=== PATIENT | male | born 1995 | race Caucasian/White ===

== ENCOUNTER 2022-08-30 05:58 | Emergency (ER) | payer SELFPAY ==
[~2022-08-30] VITALS: Ht 165.1 cm; Wt 63.6 kg
[2022-08-30 07:25] VITALS: BP 125/83
== END 2022-08-30 07:27 | disposition home or self-care (01) ==
LOC: ER 05:58 → EDBD 05:58 → ER 07:27
DX: F15.10 Other stimulant abuse, uncomplicated (principal); F19.90 Other psychoactive substance use, unspecified, uncomplicated; F16.90 Hallucinogen use, unspecified, uncomplicated; F17.210 Nicotine dependence, cigarettes, uncomplicated
CPT/HCPCS: 93005

== ENCOUNTER 2022-10-14 09:46 | Emergency (ER) | payer SELFPAY ==
[2022-10-14 10:10] LABS: Basophils # (auto) 0 10 ^3/uL (0-0.2); Basophils % (auto) 0.2 % (0.0-2.0); Eosinophils # (auto) 0.1 10 ^3/uL (0-0.8); Eosinophils % (auto) 0.8 % (0.0-7.0); Hematocrit 48.5 % (41.0-53.0); Hemoglobin 16.4 g/dL (13.5-17.5); Lymphocytes # (auto) 0.9 10 ^3/uL (0.4-5.4); Lymphocytes % (auto) 12.4 % (10.0-50.0); Mean Corpuscular Hemoglobin 29.9 pg (28.0-32.0); Mean Corpuscular Hgb Conc. 33.7 g/dL (32.0-36.0); Mean Corpuscular Volume 88.6 fL (80.0-100.0); Monocytes # (auto) 0.7 10 ^3/uL (0-1.3); Monocytes % (auto) 9.5 % (0.0-12.0); Neutrophils # (auto) 5.7 10 ^3/uL (1.6-8.6); Neutrophils % (auto) 77.1 % (37.0-80.0); Red Blood Cells 5.48 10^6/uL (4.5-5.90); White Blood Cell 7.4 10^3/uL (4.4-10.8)
[2022-10-14 10:30] LABS: Albumin 3.7 g/dL (3.4-5.0); Calcium 8.7 mg/dL (8.5-10.1); Magnesium 2.2 mg/dL (1.6-2.6); Potassium 3.6 mmol/L (3.5-5.1)
[2022-10-14 10:33] LABS: BUN/Creatinine Ratio 19.8; Bilirubin, Total 0.3 mg/dL (0.2-1.0); Total Protein 7.2 g/dL (6.4-8.2)
[2022-10-14] MEDS ORDERED: ASPirin 325 MG TAB PO ONE (11:15)
[2022-10-14 13:26] VITALS: BP 99/61
== END 2022-10-14 13:29 | disposition home or self-care (01) ==
LOC: ER 09:46
DX: R07.89 Other chest pain (principal); F15.10 Other stimulant abuse, uncomplicated; F19.10 Other psychoactive substance abuse, uncomplicated; F17.210 Nicotine dependence, cigarettes, uncomplicated; F12.90 Cannabis use, unspecified, uncomplicated
CPT/HCPCS: 36415; 71045; 80053; 83735; 84484; 85025; 93005; 96360; 96361

== ENCOUNTER 2024-12-06 11:12 | Emergency (ER) | payer SELFPAY ==
[~2024-12-06] VITALS: Ht 162.6 cm; Wt 67.5 kg
--- NOTE | 2024-12-06 12:02 | ED.PDOC ---
Musculoskeletal HPI Comments HPI: Poor Historian. 29-year-old male presents to emergency department for evaluation of left upper extremity pain and swelling that started yesterday. Patient states that two days ago he injected methamphetamine his left forearm. Patient denies any other acute symptoms. past medical history: denies past surgical history: denies medications: denies allergies: nkda social history: endorses tobacco use, endorses Etoh use, endorses drug use(mar ijuana, methamphetamine) REVIEW OF SYSTEMS: CONSTITUTIONAL: Denies acute: fever, diaphoresis, chills, generalized weakness. HEAD: Denies acute: headache, photophobia Eyes: Denies acute: Double vision, vision loss, eye pain, eye discharge. EARS: Denies acute: tinnitus, hearing loss, ear discharge, ear pain, THROAT: Denies acute: sore throat, swelling, difficulty swallowing , pain with swallowing, change in voice. NECK: Denies acute: neck pain, neck swelling, stiff neck. HEART: Denies acute : chest pain, palpitations, LUNGS: Denies acute: SOB, wheezing, cough, hemoptysis ABDOMEN: Denies acute: abdominal pain, Nausea, Vomiting, diarrhea, melena , hematemesis, hematochezia SKIN: Denies acute: rash, redness, lesions, itchiness. EXTREMITIES: Denies acute: calf pain, numbness, tingling, weakness, Denies acute: Low back pain. Neuro: Denies acute: focal neurological deficit, motor or sensory focal neurological deficit, tremors, seizure like activity, confusion, dizziness, change in mental status, loss of bowel or bladder function, cauda equina like symptoms. : Denies acute: dysuria, hematuria, flank pain, increase in urinary frequency. PSYCH: Denies acute: hallucination, suicidal ideation, homicidal ideation. PHYSICAL EXAM: General: [id number] acute distress, awake and alert. Head: normocephalic, atraumatic. Neck: supple, trachea is midline, no swelling. Throat: Normal phonation. Eyes:, no erythema, no purulent discharge, no proptosis, no icterus. Heart: regular rate, regular rhythm, no significant murmur appreciated. Lungs: no apparent respiratory distress, Able to speak in full sentences. No wheezing, no rhonchi, no crackles. No stridors Clear to auscultation bilaterally. Abdomen: non tender to palpation, non distended, soft, no guarding, no rebound, + bowel sounds. Neuro: Awake, Alert, oriented to name, self, situation, follows commands GCS=15. Speech is normal. Skin: no petechia, no purpura, no cyanosis, non-pale, not jaundice. Lower extremities: --no - Pitting edema no deformity, no focal swelling, no calf TTP. Makes eye contact. moves all four extremities. Face: no apparent facial droop. Ambulating in the ED independently. Evaluation of the area of complaint: Left upper extremity has generalized diffuse swelling from the left shoulder and extending all the way to the fingertips. Tenderness to palpation throughout. Noted focal areas of redness where patient injected methamphetamine two days ago. Radial pulses palpable. S ensory and motor are present distally. ED COURSE: The transfer center from [facility] called back and said they are unable to get a hold of the hand surgeon again Dr. Schmid. And for this reason they declined the transfer. We will continue to search for other facilities for higher level of care. We do not have any hand surgeon here. I also discussed the case with Dr. Vazquez our general surgeon who says he does not do extremities in these cases. At this time 21:17 p.m. case was discussed with [facility]. They spoke with the hand surgeon on-call Dr. Singletary. She declined to see the patient and she says that the patient needs a tertiary facility where there is an orthopedic hand surgeon. She is a plastic hand surgeon. At 22:05 p.m. our I spoke with [facility] transfer center: The case was discussed with the orthopedic surgeon and the hand surgeon a deficit (HPI, physical exam, labs and diagnostic tests that were available at the time of disposition, ED course, treatment plan) on the phone. I spoke with Dr. See the hand surgeon special education science teacher in a said that since the swelling extends above the hand he can not accept the patient it exceeds his expertise. I reasons with him that if he is willing to follow in consult as far as the hand I will speak with the orthopedic surgeon at the facility and see if they are also willing to follow in consult for the remainder of the extremity. He still refused to accept the patient. I spoke with the orthopedic surgeon at their facility Dr. Mittal. He was more reasonable and agreeable to follow in consult if hand surgeon is also going to be in on board involved to cover the hand portion of the presentation of the patient. They tried to call the hand surgeon again to have a conference call with the orthopedic doctor and myself. They were unable to reach the hand surgeon again. The transfer center said they will continue to try to reach out to the hand surgeon to see if he is willing to follow in consult pertaining to the hand only with the understanding that the orthopedic doctor will do his part of the extremity as well. Have not heard back from the transfer center yet. Chief Complaint: Upper Extremity Time Seen by MD: 11:16 Primary Care Provider: UNKNOWN Reviewed Notes: Nurses Notes, Medications, Allergies Allergies: Coded Allergies: NO KNOWN ALLERGIES (Unverified , 08/30/22) Information Source: Patient Mode of Arrival: Ambulatory Location: Left Past Medical History PAST MEDICAL HISTORY: Denies Surgical History: Denies all surgeries Family History Family History: Reviewed,noncontributory to illness Social History Smoker: Cigarettes Alcohol: Occasionally Drugs: Marijuana, Methamphetamine, Other Was a procedure done? Was a procedure done?: No Differential Diagnosis EXT Differential Diagnosis: Cellulitis, CHF, Deep Vein Thrombosis, Compartment Syndrome, Fracture, Sprain, Dislocation, Gout, DJD, Myocardial Infarction, Contusion, Strain, Septic, Neurovascular injury, Arthritis, Bursitis, Other (Denies any fasciitis, abscess) X-Ray, Labs, Meds, VS Vital Signs Date Time Temp Pulse Resp B/P (MAP) Pulse Ox O2 Delivery O2 Flow Rate FiO2 12/06/24 22:05 98.2 94 18 129/88 (102) 98 98.2 12/06/24 21:19 122/75 12/06/24 19:56 98 19 98 Room Air* 0 21 12/06/24 19:33 98.8 98 19 136/96 (109) 100 98.8 12/06/24 18:07 122/77 12/06/24 18:00 90 20 120/77 (91) 96 12/06/24 17:30 112 12/06/24 17: 98.3 107 38 118/72 (87) 99 98.3 12/06/24 17:25 107 38 99 Room Air* 0 21 12/06/24 15:00 98.3 105 19 124/71 (88) 94 98.3 12/06/24 12:21 108 16 95 Room Air* 0 21 12/06/24 12:20 97.4 108 16 117/67 (84) 95 97.4 12/06/24 11:41 98.3 108 17 119/71 (87) 96 98.3 Lab Test 12/06/24 15:10 12/06/24 14:03 12/06/24 12:40 12/06/24 11:31 Range/Units Troponin I High Sensitivity < 3 L < 3 L </=54 ng/L Sodium Level 135 L 136-145 mmol/L Potassium Level 4.0 3.5-5.1 mmol/L Chloride Level 101 98-107 mmol/L Carbon Dioxide Level 25 20-31 mmol/L Anion Gap 9 5-15 Blood Urea Nitrogen 20 9-23 mg/dL Creatinine 1.18 0.700-1.30 mg/dL Glomerular Filtration Rate Calc 85 >90 mL/min BUN/Creatinine Ratio 16.9 10.0-20.0 Serum Glucose 129 H 74-106 mg/dL Calcium Level 9.6 8.7-10.4 mg/dL Total Bilirubin 0.6 0.2-1.0 mg/dL Aspartate Amino Transferase (AST) 27 13-40 U/L Alanine Aminotransferase (ALT) 15 7-40 U/L Alkaline Phosphatase 126 H 46-116 U/L C-Reactive Protein High Sensitivity 14.80 H <1.0 mg/dL Total Protein 7.4 5.7-8.2 g/dL Albumin 4.3 3.2-4.8 g/dL White Blood Count 22.0 H 4.4-10.8 10^3/uL Red Blood Count 6.20 H 4.5-5.90 10^6/uL Hemoglobin 18.5 H 13.5-17.5 g/dL Hematocrit 53.0 41.0-53.0 % Mean Corpuscular Volume 85.4 80.0-100.0 fL Mean Corpuscular Hemoglobin 29.8 28.0-32.0 pg Mean Corpuscular Hemoglobin Concent 34.9 32.0-36.0 g/dL Red Cell Distribution Width 14.5 H 11.8-14.3 % Platelet Count 326 140-450 10^3/uL Mean Platelet Volume 8.4 6.9-10.8 fL Neutrophils (%) (Auto) 87.4 H 37.0-80.0 % Lymphocytes (%) (Auto) 6.5 L 10.0-50.0 % Monocytes (%) (Auto) 5.8 0.0-12.0 % Eosinophils (%) (Auto) 0.1 0.0-7.0 % Basophils (%) (Auto) 0.2 0.0-2.0 % Neutrophils # (Auto) 19.2 H 1.6-8.6 10 ^3/uL Lymphocytes # (Auto) 1.4 0.4-5.4 10 ^3/uL Monocytes # (Auto) 1.3 0-1.3 10 ^3/uL Eosinophils # (Auto) 0 0-0.8 10 ^3/uL Basophils # (Auto) 0 0-0.2 10 ^3/uL Nucleated Red Blood Cells 0.0 % D-Dimer, Quantitative 0.26 0.0-0.49 mg/L FEU Lactic Acid Level 1.6 0.4-2.0 mmol/L B-Type Natriuretic Peptide 1.09 0-100 pg/mL Urine Color Yellow Yellow Urine Clarity Clear Clear Urine pH 6.5 5.0-9.0 Urine Specific [place] > 1.050 H 1.001-1.035 Urine Protein 1+ H Negative Urine Ketones Negative Negative Urine Blood Negative Negative /uL Urine Nitrite Negative Negative Urine Bilirubin Negative Negative Urine Urobilinogen Normal Negative mg/dL Urine Leukocyte Esterase Negative Negative /uL Urine RBC 2 0 - 3 /hpf Urine Microscopic WBC 4 H 0-3 /HPF Urine Squamous Epithelial Cells Few <5 /hpf Urine Bacteria None seen None Seen /hpf Urine Mucus Few None Seen Urine Glucose Normal Normal mg/dL Current Medications Medications (Trade) Dose Ordered Sig/Isauro Route Start Time Stop Time Status Last Admin Vancomycin HCl 250 ml @ 250 mls/hr ONCE ONCE IV 12/06/24 11:45 12/06/24 12:44 DC 12/06/24 12:56 Piperacillin Sod/ Tazobactam Sod 100 ml @ 100 mls/hr ONCE ONCE IV 12/06/24 11:45 12/06/24 12:44 DC 12/06/24 12:55 Diphenhydramine HCl (Benadryl Injection) 50 mg ONCE ONCE IV 12/06/24 13:15 12/06/24 13:16 DC 12/06/24 13:11 Acetaminophen/ Hydrocodone Bitart ([place] 5/325MG Tab) 1 tab ONCE ONCE PO 12/06/24 13:15 12/06/24 13:16 DC 12/06/24 13:13 Sodium Chloride 1,000 ml @ 1,000 mls/hr Q1H ONCE IV 12/06/24 17:00 12/06/24 17:59 DC 12/06/24 17:10 Fentanyl Citrate 100 mcg ONCE ONCE IV 12/06/24 18:00 12/06/24 18:01 DC 12/06/24 18:07 Fentanyl Citrate 100 mcg ONCE ONCE IV 12/06/24 21:00 12/06/24 21:01 DC 12/06/24 21:19 Sodium Chloride 1,000 ml @ 1,000 mls/hr Q1H ONCE IV 12/06/24 21:00 12/06/24 21:59 DC 12/06/24 21:00 [place] [address] Ph: [phone] DIAGNOSTIC IMAGING Diagnostic Imaging Report : [id number] Signed PATIENT: BUDDY SCHNEIDER ACCT: [id number] UNIT: [id number] : 1995 LOC: ER ROOM / BED: / AGE / SEX: 29 / M ADM STATUS: REG ER SERVICE 1131 ORDERING PHYSICIAN: CHRISTIAN WILLETT DO PROCEDURE(s): LUDVT - LT Upper DVT REASON: LUE pain swelling, tachy ORDER NUMBER(s): [id number], ACCESSION NUMBER(s): [id number] LEFT Upper Extremity Venous Duplex Clinical History: LUE pain swelling, tachy Comparison: None Technique: Duplex Doppler evaluation of the venous system of the LEFT lower neck and upper extremity including color Doppler and spectral/pulsed waveform analysis was performed. Findings: The internal jugular vein demonstrates appropriate compressibility and waveform variability. The subclavian vein is patent on color Doppler evaluation without intraluminal thrombus and demonstrates waveform variability. The visualized portion of the brachiocephalic vein is patent on color Doppler evaluation without intraluminal thrombus and demonstrates waveform variability. The axillary vein demonstrates appropriate compressibility and waveform variability. The brachial veins demonstrate appropriate compressibility and patency on Doppler evaluation. The basilic vein demonstrates appropriate compressibility and patency on Doppler evaluation. The cephalic vein demonstrates intraluminal thrombus. Edema is present in the left upper extremity. Impression: No deep venous thrombus identified in the LEFT upper extremity vessels evaluated above. Positive superficial thrombus is present in the left cephalic vein. ATED BY: SYD ARANDA MD DICTATED DATE/TIME: 12/06/241224 SIGNED BY: SYD ARANDA MD SIGNED DATE/TIME: 12/06/241224 CC: [place] [id number] Ph: [phone] DIAGNOSTIC IMAGING Diagnostic Imaging Report : [id number] Signed PATIENT: BUDDY SCHNEIDER ACCT: [id number] UNIT: [id number] : 1995 LOC: ER ROOM / BED: / AGE / SEX: 29 / M ADM STATUS: REG ER SERVICE 1131 ORDERING PHYSICIAN: CHRISTIAN WILLETT DO PROCEDURE(s): CXRP - CHEST PORTABLE REASON: LUE pain swelling, tachy ORDER NUMBER(s): [id number], ACCESSION NUMBER(s): [id number] EXAM: XY CHEST PORTABLE Indication: LUE pain swelling, tachy Technique: Single frontal view of the chest was obtained Comparison: CHEST PORTABLE on DOS: 10/14/22, CXRP on DOS: 10/14/22 FINDINGS: Lines and Tubes: None Lungs: No focal consolidation. Pleura: No effusion. No pneumothorax. Cardiomediastinal contours: Unremarkable Bones: No acute osseous abnormality. IMPRESSION: No acute cardiopulmonary disease. ATED BY: FRANCINE BACK MD DICTATED DATE/TIME: 12/06/241218 SIGNED BY: FRANCINE BACK MD SIGNED DATE/TIME: 12/06/241218 CC: [address] [address] Ph: [phone] DIAGNOSTIC IMAGING Diagnostic Imaging Report : [id number] Signed PATIENT: BUDDY SCHNEIDER ACCT: [id number] UNIT: [id number] : 1995 LOC: ER ROOM / BED: / AGE / SEX: 29 / M ADM STATUS: REG ER SERVICE 1131 ORDERING PHYSICIAN: CHRISTIAN WILLETT DO PROCEDURE(s): UECIR - LT UPPER EXTREMITY W CONTRAS REASON: LUE pain swelling, tachy ORDER NUMBER(s): [id number], ACCESSION NUMBER(s): [id number] EXAM: CT LT UPPER EXTREMITY W CONTRAS INDICATION: LUE pain swelling, tachy EXAM DATE: 12/06/2024 03:51 PM COMPARISON: None TECHNIQUE: Multiple axial CT images of the left upper extremity were obtained using bone algorithm. Axial and coronal reformatting was done. Bone and soft tissue windows were reviewed. Radiation Dose Information: CT Dose: CTDI volume is 45.04 mGy. Dose-length product is 2794.92 mGy*cm Omnipaque 300: 100 mL Findings: There is no evidence of an acute fracture, dislocation, blastic, or lytic lesions. No drainable fluid collections. Motion artifact wall scanning of the proximal portion of the humerus can not exclude fracture of the because of this artifact. Subcutaneous edema left upper extremity No radiopaque foreign bodies. No joint effusion or superficial soft tissue abnormalities. Impression: 1. Subcutaneous edema in the left upper extremity. No drainable fluid collections. 2. Motion artifact wall scanning the proximal 3rd of the humerus can not exclude fracture. 3. Consider MRI for further evaluation. HS:Y ATED BY: JONES AZUL Jr., DO DICTATED DATE/TIME: 12/06/241704 SIGNED BY: JONES AZUL Jr., SIGNED DATE/TIME: 12/06/241704 CC: Time of 1ST Reevaluation: 14:21 (The orthopedic surgeon has just evaluated the patient. They he came and spoke with me and said that the patient needs to be transferred to higher level of care for decompression and he said that he can not do the hand but he needs decompression the hand forearm and above the elbow as well.) Reevaluation 1ST: Unchanged Time of 2ND Reevaluation: 16:50 (At this time I discussed the case with the hand surgeon at [facility] Dr. Schmid. He refused to accept the case. He said a general orthopedic surgeon can manage this case. I emphasized and clarified that the hand is definitely involved in his swollen and the patient probably needs decompression in the hand in addition to the remainder of the left upper extremity per hour orthopedic doctor recommendations. He is still convinced that this is an upper extremity case that does not need that hand involvement and emphasizes that any general orthopedic doctor can do this case and he declined to accept it. I updated Dr. Keller our orthopedic surgeon of the situation. He is 100% certain and adamant about transfer the patient for hand surgeon. Dr. Keller said it is mal practice for any general orthopedic doctor to decompress any palmar aspect of the hand. ) Reevaluation 2ND: Unchanged Time of 3RD Reevaluation: 17:50 (The case was discussed with the same team [facility] team (HPI, physical exam, labs and diagnostic tests that were available at the time of disposition, ED course, treatment plan) on the phone. I discussed the case with the orthopedic surgeon at the facility Dr. Escobar Zuleta. He accepts the patient under the condition that the hand surgeon is also willing to follow in consult. Transfer center stated that they will try to reach the hand surgeon again and confirmed with us the acceptance of the patient. I also discussed the case with the ER physician Dr. Jane.) Reevaluation 3RD: Unchanged Patient Education/Counseling: Diagnosis, Treatment Family Education/Counseling: No Family Present Assigned to Dr. Dr. Meehan. The care of this patient was transferred to [facility] still awaiting for an accepting facility. Patient received IV antibiotics. Patient was elevated in person by Orthopedic surgery here in the ED. They recommended transfer the patient to higher level of care for decompression. We tried multiple facilities and have not been successful so far to have an accepting facility. Patient is homeless and states he has five puppies that he has to go take care of. He also stated that he is worried about the financial expense of being transferred and being treated at another facility that he is does not want to get stuck with a bill. I tried to reason with him that he must take care of his arm otherwise he could potentially lose his arm. I anticipate the patient will likely leave against medical advice. Departure 1 Departure Time of Disposition: 13:40 Impression: Primary Impression: Left arm cellulitis Additional Impressions: Superficial thrombophlebitis of left upper extremity Sepsis Leukocytosis Methamphetamine abuse Disposition: 02 SHORT TERM HOSPITAL Admit to: Tele Condition: Guarded Discharged With: Self Critical Care Note Critical Care Time?: Yes (>90min-critical care time only) I personally scribed for CHRISTIAN WILLETT DO ([email or web address]) on 12/06/24 at 16:36. Electronically submitted by Radha Garcia ([facility] I personally scribed for CHRISTIAN WILLETT DO ([email or web address]) on 12/06/24 at 18:19. Electronically submitted by Radha Garcia ([facility] I personally scribed for CHRISTIAN WILLETT DO ([email or web address]) on 12/06/24 at 20:39. Electronically submitted by Radha Garcia ([facility] CHRSITIAN WILLETT DO Dec 06, 2024 12:02
[2024-12-06 12:21] VITALS: PULSE 108; RESP 16; O2SAT 95
--- NOTE | 2024-12-06 12:21 | DVH ---
EXAM: XY CHEST PORTABLE Indication: LUE pain swelling, tachy Technique: Single frontal view of the chest was obtained Comparison: CHEST PORTABLE on DOS: 10/14/22, CXRP on DOS: 10/14/22 FINDINGS: Lines and Tubes: None Lungs: No focal consolidation. Pleura: No effusion. No pneumothorax. Cardiomediastinal contours: Unremarkable Bones: No acute osseous abnormality. IMPRESSION: No acute cardiopulmonary disease.
--- NOTE | 2024-12-06 12:28 | DVH ---
LEFT Upper Extremity Venous Duplex Clinical History: LUE pain swelling, tachy Comparison: None Technique: Duplex Doppler evaluation of the venous system of the LEFT lower neck and upper extremity including color Doppler and spectral/pulsed waveform analysis was performed. Findings: The internal jugular vein demonstrates appropriate compressibility and waveform variability. The subclavian vein is patent on color Doppler evaluation without intraluminal thrombus and demonstra loc waveform variability. The visualized portion of the brachiocephalic vein is patent on color Doppler evaluation without intr aluminal thrombus and demonstrates waveform variability. The axillary vein demonstrates appropriate compressibility and waveform variability. The brachial veins demonstrate appropriate compressibility and patency on Doppler evaluation. The basilic vein demonstrates appropriate compressibility and patency on Doppler evaluation. The cephalic vein demonstrates intraluminal thrombus. Edema is present in the left upper extremity. Impression: No deep venous thrombus identified in the LEFT upper extremity vessels evaluated above. Positive superficial thrombus is present in the left cephalic vein.
[2024-12-06] MEDS: PIPERACILLIN-TAZOB 3.375GM 100 ML IV ONE (12:55)
[2024-12-06] MEDS: VANCOMYCIN 1GM/250ML KIT 250 ML IV ONE (12:56)
[2024-12-06] MEDS: diphenhdrAMINE HCL 50 MG/1 ML VL IV ONE (13:11)
[2024-12-06] MEDS: HYDROcodone-ACET 5/325MG TAB PO ONE (13:13)
[2024-12-06] MEDS: diphenhdrAMINE HCL 50 MG/1 ML VL ONE (13:15)
[2024-12-06 13:23] LABS: Basophils # (auto) 0 10 ^3/uL (0-0.2); Basophils % (auto) 0.2 % (0.0-2.0); Eosinophils # (auto) 0 10 ^3/uL (0-0.8); Eosinophils % (auto) 0.1 % (0.0-7.0); Hemoglobin 18.5 g/dL (13.5-17.5); Lymphocytes # (auto) 1.4 10 ^3/uL (0.4-5.4); Lymphocytes % (auto) 6.5 % (10.0-50.0); Mean Corpuscular Hemoglobin 29.8 pg (28.0-32.0); Mean Corpuscular Hgb Conc. 34.9 g/dL (32.0-36.0); Mean Corpuscular Volume 85.4 fL (80.0-100.0); Monocytes # (auto) 1.3 10 ^3/uL (0-1.3); Monocytes % (auto) 5.8 % (0.0-12.0); Neutrophils # (auto) 19.2 10 ^3/uL (1.6-8.6); Neutrophils % (auto) 87.4 % (37.0-80.0); Platelet Count (auto) 326 10^3/uL (140-450); Red Cell Distribution Width 14.5 % (11.8-14.3)
[2024-12-06 14:30] LABS: Anion Gap 9 (5-15)
[2024-12-06 14:32] LABS: Calcium 9.6 mg/dL (8.7-10.4)
[2024-12-06 14:34] LABS: Carbon Dioxide 25 mmol/L (20-31); Chloride 101 mmol/L (98-107); Sodium 135 mmol/L (136-145)
[2024-12-06 14:35] LABS: Glucose 129 mg/dL (74-106)
[2024-12-06 14:36] LABS: Alkaline Phosphatase 126 U/L (46-116); Total Protein 7.4 g/dL (5.7-8.2)
[2024-12-06 14:39] LABS: Aspartate Aminotransferase 27 U/L (13-40); Bilirubin, Total 0.6 mg/dL (0.2-1.0)
[2024-12-06 15:32] LABS: Alanine Aminotransferase 15 U/L (7-40); Albumin 4.3 g/dL (3.2-4.8); BUN/Creatinine Ratio 16.9 (10.0-20.0); Blood Urea Nitrogen 20 mg/dL (9-23)
[2024-12-06] MEDS: IOHEXOL 300 MG/ML 100ML BOTTLE IJ ONE (15:41)
--- NOTE | 2024-12-06 15:50 | DVHHP2 ---
History Allergies: Coded Allergies: NO KNOWN ALLERGIES (Unverified , 08/30/22) Chief Complaint: Left hand, forearm swelling, no loss of sensation, mild pain Present Illness(Onset/Duration 3 days porgressive swelling left hand , IVDA, history of meth, no drainage Past Surgical History non contributory Physical Exam Skin intact Chest and Lungs CTA B Heart RRR neg mrg Abdomen NBS ND NT Extremities Left UE, severe swelling left hand, moderate swelling left forearm NVI, nl capp refill all fingers no palpable abscess no draining sinus Vital Signs Vital Signs Date Time Temp Pulse Resp B/P (MAP) Pulse Ox O2 Delivery O2 Flow Rate FiO2 12/06/24 15:00 98.3 105 19 124/71 (88) 94 98.3 12/06/24 12:21 Room Air* 0 21 Impressions/Description Left hand , forearm, arm cellulitis with no evidence yet of compartment syndrome Plan Pt adivised that I recommended STAT [facility] left wrist , hand, forearm I explained that he was at risk of loss of his left hand v arm, vs sepsis v pt responded that he had to go home I returned to patient after 5 min and he had left JONES BOATENG MD Dec 06, 2024 15:50
--- NOTE | 2024-12-06 17:08 | DVH ---
EXAM: CT LT UPPER EXTREMITY W CONTRAS INDICATION: LUE pain swelling, tachy EXAM DATE: 12/06/2024 03:51 PM COMPARISON: None TECHNIQUE: Multiple axial CT images of the left upper extremity were obtained using bone algorithm. A xial and coronal reformatting was done. Bone and soft tissue windows were reviewed. Radiation Dose Information: CT Dose: CTDI volume is 45.04 mGy. Dose-length product is 2794.92 mGy*cm Omnipaque 300: 100 mL Findings: There is no evidence of an acute fracture, dislocation, blastic, or lytic lesions. No drainable fluid collections. Motion artifact wall scanning of the proximal portion of the humerus can not exclude fr acture of the because of this artifact. Subcutaneous edema left upper extremity No radiopaque foreign bodies. No joint effusion or superficial soft tissue abnormalities. Impression: 1. Subcutaneous edema in the left upper extremity. No drainable fluid collections. 2. Motion artifact wall scanning the proximal 3rd of the humerus can not exclude fracture. 3. Consider MRI for further evaluation. HS:Y
[2024-12-06] MEDS: SODIUM CHLORIDE 0.9% 1,000 ML IV ONE ×2 (17:10→21:00)
[2024-12-06 17:23] LABS: Urine Bacteria None Seen /hpf (None Seen); Urine Blood Negative /uL (Negative); Urine Clarity Clear (Clear); Urine Color Yellow (Yellow); Urine Mucus FEW (None Seen); Urine Protein, UAD 1+ (Negative); Urine Squamous Epithelial Cell FEW /hpf (<5); Urine Urobilinogen Normal (Negative); Urine WBC 4 /HPF (0-3); Urine pH 6.5 (5.0-9.0)
[2024-12-06 17:25] VITALS: PULSE 107; RESP 38; O2SAT 99
[2024-12-06 17:27] LABS: Urine Specific Gravity > 1.050 (1.001-1.035)
[2024-12-06] MEDS: fentaNYL CITRATE 100 MCG/2 ML VL IV ONE ×2 (18:07→21:19)
[2024-12-06 19:56] VITALS: PULSE 98; RESP 19; O2SAT 98
--- NOTE | 2024-12-06 23:57 | ED.PDOC ---
Departure 1 Departure Time of Disposition: 23:55 (Patient was signed out to me pending placement. Patient was previously evaluated by Orthopedic surgery who recommended that patient go for a fasciotomy. I emergently evaluated patient assess patient. In my judgment the patient has concern for compartment syndrome. I called [facility] who accepted the patient I will emergently transfer patient there.) Impression: Primary Impression: Left arm cellulitis Additional Impressions: Leukocytosis Qualified Codes: D72.829 - Elevated white blood cell count, unspecified Superficial thrombophlebitis of left upper extremity Sepsis Qualified Codes: A41.9 - Sepsis, unspecified organism Methamphetamine abuse Left arm swelling Disposition: 02 SHORT TERM [facility]OSPITAL Condition: Critical Discharged With: Self Critical Care Note Critical Care Time?: Yes Critical care comment: Patient with concern for compartment syndrome versus rapid infection of his arm and hand. Authorized and Performed by: Heather Meehan MD Total critical care time: Approximately 49 minutes Due to a high probability of clinically significant, life threatening deterioration, the patient required my highest level of preparedness to intervene emergently and I personally spent this critical care time directly and personally managing the patient. This critical care time included obtaining a history; examining the patient; pulse oximetry; ordering and review of studies; arranging urgent treatment with development of a management plan; evaluation of patient's response to treatment; frequent reassessment; and, discussions with other providers. This critical care time was performed to assess and manage the high probability of imminent, life-threatening deterioration that could result in multi-organ failure. It was exclusive of separately billable procedures and treating other patients and teaching time. Please see my other sections and the rest of the note for further information on patient assessment and treatment. HEATHER MEEHAN MD Dec 06, 2024 23:57
[2024-12-07] MEDS ORDERED: MORPHINE SULFATE 4 MG/ML SYR/VIAL IV ONE (06:30)
[2024-12-07] MEDS ORDERED: ONDANSETRON HCL 4 MG/2 ML VIAL IV ONE (06:30)
[2024-12-07] MEDS: ONDANSETRON HCL 4 MG/2 ML VIAL IV ONE (06:33)
[2024-12-07] MEDS: MORPHINE SULFATE 4 MG/ML SYR/VIAL IV ONE (06:37)
[2024-12-07 06:55] VITALS: TEMP 97.6; O2SAT 100
[2024-12-07 07:04] VITALS: BP 125/96; PULSE 92; RESP 16
== END 2024-12-06 14:21 | disposition short-term general hospital (02) ==
LOC: ER 11:12
DX: A41.9 Sepsis, unspecified organism (principal); L03.114 Cellulitis of left upper limb; I80.8 Phlebitis and thrombophlebitis of other sites; D72.829 Elevated white blood cell count, unspecified; F15.10 Other stimulant abuse, uncomplicated; F17.210 Nicotine dependence, cigarettes, uncomplicated; F12.90 Cannabis use, unspecified, uncomplicated; Z59.00 Homelessness unspecified
CPT/HCPCS: 36415; 71045; 73201; 80053; 81001; 83605; 83880; 84484; 85025; 85379; 86141; 87040; 93971; 96361; 96365; 96366; 96368; 96375; 96376; 99291; 99292; J1200; J2543; J3010; J3370; J7030; Q9967